=== PATIENT | female | born 2000 | race Two or more races ===

== ENCOUNTER 2021-07-06 04:40 | Emergency (ER) | payer MEDICAID ==
[~2021-07-06] VITALS: Ht 157.5 cm; Wt 58.0 kg
[2021-07-06 06:02] LABS: BASOPHILS % 0.2 % (0.0-2.0); EOSINOPHILS % 0.4 % (0.0-5.0); HEMATOCRIT. 38.6 % (36.0-48.0); HEMOGLOBIN. 12.4 g/dL (12.0-16.0); LYMPHOCYTES % 7.2 % (20.0-50.0); MEAN CORPUSCULAR HEMOGLOBIN 26.8 pg (28.0-32.0); MEAN CORPUSCULAR VOLUME 83.9 fL (81.0-99.0); MEAN PLATELET VOLUME 8.4 fl (7.4-10.4); MONOCYTES % 6.4 % (2.0-8.0); NEUTROPHILS % 85.8 % (40.0-76.0); PLATELET 278 x1000/uL (130-400); RED BLOOD CELL COUNT 4.61 mill/uL (4.2-5.4); RED CELL DISTRIBUTION WIDTH 13.9 % (11.6-14.6)
[2021-07-06 06:07] LABS: CHLORIDE 105 mEq/L (98-107)
[2021-07-06 06:34] LABS: B-HCG QUANTITATIVE 54791 mIU/mL (<3)
[2021-07-06 06:42] LABS: CLARITY URINE TURBID (CLEAR); COLOR URINE YELLOW (YELLOW); KETONES URINE TRACE (NEGATIVE); LEUKOCYTE ESTERASE URINE 2+ (NEGATIVE); NITRITE URINE NEGATIVE (NEGATIVE); OCCULT BLOOD URINE NEGATIVE (NEGATIVE); PROTEIN URINE 2+ (NEGATIVE); SPECIFIC GRAVITY URINE 1.026 (1.005-1.030)
[2021-07-06] MEDS ORDERED: CEPH250C2 MT (07:38)
[2021-07-06 08:00] VITALS: BP 122/65
== END 2021-07-06 08:01 | disposition home or self-care (01) ==
LOC: ER 04:40
DX: O26.891 Other specified pregnancy related conditions, first trimester (principal); S61.309A Unspecified open wound of unspecified finger with damage to nail, initial encounter; X58.XXXA Exposure to other specified factors, initial encounter; Y93.89 Activity, other specified; Y92.89 Other specified places as the place of occurrence of the external cause; Y99.8 Other external cause status; Z3A.12 12 weeks gestation of pregnancy
CPT/HCPCS: 36415; 70140; 73130; 76801; 80053; 81003; 81025; 84702; 85025; 99285